=== PATIENT | male | born 1980 | race Caucasian/White ===

== ENCOUNTER 2017-06-18 12:49 | Emergency (ER) | payer MEDICAID ==
[~2017-06-18] VITALS: Ht 182.9 cm; Wt 141.1 kg
[~2017-06-18 12:49] MED LIST: ALBU18HF2 IH; CLOT15CR74 TP
[2017-06-18] MEDS ORDERED: aspirin 81mg tab.chew PO ONE (13:05)
[2017-06-18 13:19] LABS: BASOPHILS % (AUTO) 0.7 % (0-1); EOSINOPHILS # (AUTO) 0.1 X10'3 (0-0.9); EOSINOPHILS % (AUTO) 2.3 % (0-6); HEMATOCRIT 41.8 % (42.0-52.0); HEMOGLOBIN 14.3 g/dl (14.0-17.9); LYMPHOCYTES # (AUTO) 1.6 X10'3 (1.1-4.8); MEAN CORPUSCULAR HEMOGLOBIN 28.8 PG (27.0-31.0); MEAN CORPUSCULAR HGB CONC 34.3 % (33.0-36.5); MEAN CORPUSCULAR VOLUME 83.9 FL (78-98); MEAN PLATELET VOLUME 8.3 FL (7.4-10.4); MONOCYTES # (AUTO) 0.3 X10'3 (0-0.9); MONOCYTES % (AUTO) 4.9 % (2-12); NEUTROPHILS # (AUTO) 4.3 X10'3 (1.8-7.7); NEUTROPHILS % (AUTO) 66.1 % (42-75); PLATELET COUNT 240 X10'3 (140-440); RED BLOOD COUNT 4.99 X10'6 (4.70-6.10); RED CELL DISTRIBUTION WIDTH 12.5 % (11.5-14.5); WHITE BLOOD COUNT 6.3 X10'3 (4.5-11.0)
[2017-06-18 13:29] LABS: INR 0.9 INR; PARTIAL THROMBOPLASTIN TIME 25 SECONDS (22-32); PROTHROMBIN TIME 9.1 SECONDS (9.0-12.0)
[2017-06-18 13:33] LABS: ALANINE AMINOTRANSFERASE 55 U/L (12-78); ALBUMIN 3.6 G/DL (3.4-5.0); ALBUMIN/GLOBULIN RATIO 1.2 (1.1-1.5); ALKALINE PHOSPHATASE 97 IU/L (46-116); ANION GAP 9 (8-16); ASPARTATE AMINO TRANSFERASE 19 U/L (10-37); BILIRUBIN,TOTAL 0.3 MG/DL (0.1-1.0); BLOOD UREA NITROGEN 12 MG/DL (7-18); BUN/CREATININE RATIO 10.9 (5.4-32.0); CALCIUM 8.6 MG/DL (8.5-10.1); CHLORIDE 104 MMOL/L (99-107); SODIUM 140 MMOL/L (135-145); TOTAL CARBON DIOXIDE 26.7 MMOL/L (24-32); TOTAL PROTEIN 6.7 G/DL (6.4-8.2); eGFR 75 ML/MIN
[2017-06-18] MEDS: nitroGLYCERIN 0.4mg SUBLingual tab SL PRN ×2 (13:38→13:44)
[2017-06-18 13:49] LABS: GLUCOSE 199 MG/DL (70-104)
[2017-06-18 14:48] VITALS: BP 124/66
== END 2017-06-18 15:04 | disposition left against medical advice (07) ==
LOC: ER 12:50
DX: R07.9 Chest pain, unspecified (principal); E78.00 Pure hypercholesterolemia, unspecified; K21.9 Gastro-esophageal reflux disease without esophagitis; G89.29 Other chronic pain
CPT/HCPCS: 36415; 71045; 80053; 84484; 85025; 85610; 85730; 93005; 99285

== ENCOUNTER 2019-07-22 15:12 | Emergency (ER) | payer MEDICAID ==
[~2019-07-22] VITALS: Ht 182.9 cm; Wt 143.0 kg
== END 2019-07-22 16:04 | disposition home or self-care (01) ==
LOC: ER 15:13
DX: N48.29 Other inflammatory disorders of penis (principal); E78.00 Pure hypercholesterolemia, unspecified; K21.9 Gastro-esophageal reflux disease without esophagitis; G89.29 Other chronic pain; Z88.6 Allergy status to analgesic agent; Z88.5 Allergy status to narcotic agent
CPT/HCPCS: 99281

== ENCOUNTER 2021-05-27 13:39 | Emergency (ER) | payer MEDICAID ==
[~2021-05-27] VITALS: Ht 182.9 cm; Wt 145.4 kg
[2021-05-27 14:06] VITALS: BP 144/98
[2021-05-27] MEDS ORDERED: AMOX-117 PO (15:03)
== END 2021-05-27 15:19 | disposition home or self-care (01) ==
LOC: ER 13:40
DX: J02.9 Acute pharyngitis, unspecified (principal); Z20.822 Contact with and (suspected) exposure to COVID-19; R05.9 Cough, unspecified; J00 Acute nasopharyngitis [common cold]; E78.00 Pure hypercholesterolemia, unspecified; K21.9 Gastro-esophageal reflux disease without esophagitis; G89.29 Other chronic pain; F17.200 Nicotine dependence, unspecified, uncomplicated; Z98.890 Other specified postprocedural states; Z88.8 Allergy status to other drugs, medicaments and biological substances; Z79.2 Long term (current) use of antibiotics; Z79.899 Other long term (current) drug therapy
CPT/HCPCS: 87635; 99283; C9803

== ENCOUNTER 2023-08-04 08:20 | Day surgery (SDC) | payer MEDICAID ==
[~2023-08-04] VITALS: Ht 182.9 cm; Wt 142.0 kg
[2023-08-04] VITALS (11 sets, daily range): BP systolic 95–136; BP diastolic 51–94; PULSE 65–85; RESP 14–18; TEMP 98; O2SAT 93–96
[2023-08-04] MEDS ORDERED: nitroGLYCERIN 0.4mg SUBLingual tab SL PRN (08:45)
[2023-08-04] MEDS ORDERED: normal saline 1,000 ML IV SCH (08:45)
[2023-08-04 09:13] LABS: BASOPHILS % (AUTO) 0.5 % (0-1); EOSINOPHILS # (AUTO) 0.2 X10'3 (0-0.9); EOSINOPHILS % (AUTO) 2.6 % (0-6); HEMATOCRIT 41.7 % (42.0-52.0); HEMOGLOBIN 13.7 g/dl (14.0-17.9); LYMPHOCYTES # (AUTO) 1.7 X10'3 (1.1-4.8); MEAN CORPUSCULAR HEMOGLOBIN 27.9 PG (27.0-31.0); MEAN CORPUSCULAR HGB CONC 32.9 g/dL (33.0-36.5); MEAN CORPUSCULAR VOLUME 84.9 FL (78-98); MEAN PLATELET VOLUME 7.8 FL (7.4-10.4); MONOCYTES # (AUTO) 0.4 X10'3 (0-0.9); MONOCYTES % (AUTO) 5.7 % (2-12); NEUTROPHILS # (AUTO) 4.9 X10'3 (1.8-7.7); NEUTROPHILS % (AUTO) 67.2 % (42-75); PLATELET COUNT 234 X10'3 (140-440); RED BLOOD COUNT 4.91 X10'6 (4.70-6.10); RED CELL DISTRIBUTION WIDTH 13.9 % (11.5-14.5); WHITE BLOOD COUNT 7.2 X10'3 (4.5-11.0)
[2023-08-04] MEDS ORDERED: NO HOME MEDS (09:16)
[2023-08-04 09:30] LABS: ALBUMIN 3.7 G/DL (3.4-5.0); ANION GAP 10 (8-16); BLOOD UREA NITROGEN 14 MG/DL (7-18); BUN/CREATININE RATIO 14.4 (10.0-20.0); CALCIUM 8.4 MG/DL (8.5-10.1); CHLORIDE 104 MMOL/L (99-107); CREATININE 0.97 MG/DL (0.60-1.10); GLUCOSE 126 MG/DL (70-104); POTASSIUM 4.4 MMOL/L (3.5-5.1); SODIUM 140 MMOL/L (135-145); TOTAL CARBON DIOXIDE 25.6 MMOL/L (24-32); eCRCL 107 ML/MIN; eGFR 84 ML/MIN
[2023-08-04] MEDS: diphenhydrAMINE 25mg capsule PO PRN (09:47)
[2023-08-04] MEDS: LORazepam 0.5 MG tablet PO PRN (09:47)
[2023-08-04 09:57] LABS: APTT 28 SECONDS (22-32); INR 0.9 INR
[2023-08-04] MEDS ORDERED: fentaNYL/PF 50MCG/1 ML 2ML syringe ONE ×2 (11:26→12:23)
[2023-08-04] MEDS ORDERED: LIDOcaine 1% 30ml preserv. free vial ONE (11:26)
[2023-08-04] MEDS ORDERED: iohexol 350MG/ML 100ml bottle IV ONE (11:26)
[2023-08-04] MEDS ORDERED: iohexol 350 MG/ML 50ML vial IV ONE ×2 (11:26→12:21)
[2023-08-04] MEDS ORDERED: midazolam 1 mg/ML 2ml injection ONE ×2 (11:26→12:23)
[2023-08-04] MEDS ORDERED: ondansetron/PF 4mg/2ml inj IV PRN (13:05)
[2023-08-04] MEDS ORDERED: proCHLORperazine 10 MG/2 ml inj IV PRN (13:05)
[2023-08-04] MEDS ORDERED: OXAZEpam 15mg capsule PO PRN (13:05)
[2023-08-04] MEDS ORDERED: normal saline 1000ml 1,000 ML IV SCH (13:05)
[2023-08-04] MEDS ORDERED: HYDROcodone/acetaminophen 5mg/325mg tablet PO PRN (13:05)
[2023-08-04] MEDS: HYDROcodone/acetaminophen 10/325mg tab PO PRN (13:27)
== END 2023-08-04 17:55 | disposition home or self-care (01) ==
LOC: SSTAY O 08:20
PROVIDERS: ATTEND Internal Medicine Cardiovascular Disease
DX: R94.39 Abnormal result of other cardiovascular function study (principal); I25.10 Atherosclerotic heart disease of native coronary artery without angina pectoris; M47.819 Spondylosis without myelopathy or radiculopathy, site unspecified; E78.5 Hyperlipidemia, unspecified; K21.9 Gastro-esophageal reflux disease without esophagitis; I10 Essential (primary) hypertension; G47.33 Obstructive sleep apnea (adult) (pediatric); F98.8 Other specified behavioral and emotional disorders with onset usually occurring in childhood and adolescence; M54.12 Radiculopathy, cervical region; E66.9 Obesity, unspecified; Z68.41 Body mass index [BMI] 40.0-44.9, adult; Z88.8 Allergy status to other drugs, medicaments and biological substances; F17.210 Nicotine dependence, cigarettes, uncomplicated; Z79.899 Other long term (current) drug therapy; Z79.01 Long term (current) use of anticoagulants
CPT/HCPCS: 36415; 71046; 80048; 82948; 85025; 85610; 85730; 93005; 93458; 99152; 99153; J1644; J2250; J3010; J3490; J7030; Q0163; Q9967; A4620; A6258; C1760